=== PATIENT | female | born 1960 | race Caucasian/White ===

== ENCOUNTER 2017-01-24 12:54 | Day surgery (SDC) | payer OTHER ==
[~2017-01-24] VITALS: Ht 152.4 cm; Wt 65.0 kg
--- NOTE | 2017-01-24 08:13 | PCM.HPANE ---
Patient Data Surgeon Admitting Provider: Attending Provider:Amilcar Donovan DPM Primary Care Physician:Brisa Other Provider:Joanne Mccartney Anesthesia Reason for Visit Right Plantar Fibroma Ht/WT & BMI Height (Feet): 5 Height (Inches): 1 Weight (Kilograms): 60.327 Body Mass Index 25.00 Allergies Coded Allergies: No Known Allergies (Verified , 01/24/17) Past Anesthesia History Anesthesia History: Denies:: Anesthesia Reactions, Malignant Hyperthermia Diabetes History Hx Diabetes?: Yes Type of Diabetes: Type II Glycemic Control: Diet Controlled MRSA MRSA: No Medications Reported Medications Cholestyramine (Cholestyramine Packet)4 Gm Packet4 Gm PO DAILY Ref 0 PLEASE VERIFY DOSAGE 01/22/17 Hydrocodone-Acetaminophen 5-325 mg 1 Each Tablet1 Tablet PO Q4H PRN For Pain Ref 0 01/22/17 Cyclobenzaprine 10 Mg [id number] Mg PO TID PRN Spasm 01/22/17 History History of ENT Problems?: No Hx of Heart Problems?: Yes Cardiovascular History: Positive for:: Chest Pain (06/2006 MPS (EF 74%) WNL ) Denies:: Heart Murmur Hx of Respiratory Problem?: No Respiratory History: Denies:: Use of C-PAP Machine Hx Neurologic Problems?: Yes Neurological History: Positive for:: Headaches Hx of GI Problems?: Yes Other GI Pertinent History: S/P APPY Hx of Problems?: Yes Genitourinary History: Positive for:: Urinary Tract Infection (HX OF) Denies:: Kidney Stones Female Hx: Positive for:: Problems with Breasts? (S/P BREAST BX,AXILLARY BX BOTH WERE BENIGN) Denies:: Currently Endometriosis Pelvic Inflammatory Skin History: Denies:: History Skin Disorders? Pressure Ulcers Hx Musculoskeletal Problems?: Yes Musculoskeletal History: Positive for:: Back Injury (C/OF LOWER BACK PAIN) Hx of Psycho/Social Problems?: Yes Psycho Social History: Positive for:: Anxiety Hx Surgeries?: Yes (HYST,APPY,BREAST BX,AXILLARY BX,CTR,EXC AHMADI'S NEUROMA- FOOT) Hx Any Other Health Problems?: Yes Other History: Positive for:: Hospitalization (CHEST PAIN) Denies:: Cancer Endocrine Disease Thyroid Disease History Blood Transfusions: Positive for:: Blood Transfusions Denies:: Blood Transfuse Reaction Hx Diabetes: Yes Hx Alcohol Use: NoHx Substance Use: NoHave You Smoked inLast 12 mo: Yes Approx How Many Cigarettes/day: 1/2-1 PPD Stop/Bang S-Snoring: Do You Snore Loudly: No T-Tired: feel tired, fatigued: No O-Obsered: Observed not breath: No P-Blood Pressure: treated: No B- Body Mass Index > 35 kg/m2: No A- Age over 50: Yes N- Neck Large Circumference: No G- Gender Male: No SAUL Total Score: 1 SAUL Risk Assessment: Low Risk, <3 Yes Risk Assessment Category Category 1A: Patient has history of documented sleep apnea, and HAS NOT received any narcotic, sedative or anesthesia administration during this stay. Category 1B: Patient has history of documented sleep apnea, and HAS received any narcotic , sedative or anesthesia administration during this stay Category 2: Patient has SUSPECTED Obstructive Sleep Apnea, and HAS received any narcotic , sedative or anesthesia administration during this stay. Category 3: Patient has SUSPECTED Obstructive Sleep Apnea and HAS NOT received narcotic, sedative or anesthesia administration during this stay. Category 4: Outpatient in Procedural Areas with known sleep apnea or who screen positive for High Risk via the STOP/BANG questionnaire. Exam Exam General Appearance: Alert, Oriented X3, Cooperative, No Acute Distress HEENT/AIRWAY: MP 1 Lungs: Normal Air Movement Heart: Exam Unremarkable Plan Impression Patient chart reviewed, patient interviewed and anesthestic plan with risks, benefits, and alternatives discussed, and informed consent obtained. ASA Physical Status: ASA2 Mod Systemic Disease Anesthetic Plan: GA Bene/Risks/Altern/Consents: Yes HP Complete Prior to Induction: Yes Donovan Soto MD Jan 24, 2017 08:13
[~2017-01-24 12:54] MED LIST: CYCL10TA9 PO; HYDR-4003 PO; QUE9 PO
[2017-01-24] MEDS ORDERED: Propofol 10,000 mCg/mL 20 mL Inj ONE (12:55)
[2017-01-24] MEDS ORDERED: Ondansetron 2 mg/mL 2 mL Inj ONE (12:55)
[2017-01-24] MEDS ORDERED: fentaNYL-PF 50 mCg/mL 2 mL Inj ONE (12:55)
[2017-01-24 13:16] VITALS: BP 127/76; PULSE 103; RESP 14; O2SAT 97
[2017-01-24] MEDS ORDERED: Lactated Ringer's 1,000 ML IV ONE (13:33)
[2017-01-24] MEDS ORDERED: CeFAZolin Inj 2 gm / 50mL D5W IV ONE (15:36)
[2017-01-24] MEDS ORDERED: Lactated Ringer's 500 ML IV PRN (16:12)
[2017-01-24] MEDS ORDERED: Lactated Ringer's 1,000 ML IV SCH (16:12)
[2017-01-24] MEDS ORDERED: HYDROmorphone 1 mg/mL Inj IVPUSH PRN (16:15)
[2017-01-24] MEDS ORDERED: Dexamethasone 4 mg/mL Inj IVPUSH PRN (16:15)
[2017-01-24] MEDS ORDERED: Albuterol-Ipratropium 3 mL Inhalation Solution NEB PRN (16:15)
[2017-01-24] MEDS ORDERED: Ondansetron 2 mg/mL 2 mL Inj IVPUSH PRN (16:15)
[2017-01-24] MEDS ORDERED: fentaNYL-PF 50 mCg/mL 2 mL Inj IVPUSH PRN (16:15)
[2017-01-24] MEDS ORDERED: EPHEDrine Sulfate 50 mg/mL Inj IVPUSH PRN (16:15)
[2017-01-24] MEDS ORDERED: Phenylephrine 10,000 mCg/mL Inj IVPUSH PRN (16:15)
[2017-01-24] MEDS ORDERED: MetoCLOpramide 5 mg/mL 2 mL Inj IVPUSH PRN (16:15)
[2017-01-24 16:50] VITALS: BP 116/66; PULSE 94; RESP 12; O2SAT 98
--- NOTE | 2017-01-24 16:52 | PCM.SURGPO ---
Immediate Operative Note Date of Surgery: Jan 24, 2017 Pre Operative Diagnosis Plantar fibroma right foot Post Operative Diagnosis Same Procedure Excision fibroma right foot Surgeon and Mechatronics Technician Surgeon: Amilcar Donovan DPM Assistants: None Findings Plantar fibromatosis Complications There were no periprocedural complications identified. Surgical Specimen Removed: Yes Specimen sent to Pathology: Yes Surgical Specimen description: Plantar fibroma Anesthetic Administered: MAC Grafts, Implants: None Output, Estimated Blood Loss: 1 Blood Admin during surgery: No Amilcar Donovan DPM Jan 24, 2017 16:52
--- NOTE | 2017-01-24 16:56 | PCM.ANEP2 ---
Post Anesthesia Evaluation ASA/CMS Post Anesthesia VS in Patient's Normal Range?: Yes Resp Stable; Airway Patent?: Yes CV Function & Hydration Stable: Yes Mental Status Recovered?: Yes Pain control Satisfactory?: Yes N/V Control Satisfactory?: Yes Donovan Soto MD Jan 24, 2017 16:56
--- NOTE | 2017-01-24 16:56 | PCM.ANEP1 ---
Post Anesthesia Phase 1 PACU Phase 1 Assessment Date of Service: Jan 24, 2017 Vital Signs see anesthesia record Vital Signs Date Time Temp Pulse Resp B/P Pulse Ox O2 Delivery O2 Flow Rate FiO2 01/24/17 13:16 35.7 103 14 127/76 97 Room Air Anesthetic Administered: MAC Level of Alertness: Awake, talking JOHNSTON's with Equal Strength: Yes Pain: No Nausea or Vomiting: No Oxygen Delivery: Room Air Lungs: Normal Air Movement Dermatome Level: Full Sensation Donovan Soto MD Jan 24, 2017 16:56
[2017-01-24] MEDS ORDERED: HYDROcodone-APAP 5-325 mg Tablet PO PRN (17:20)
--- NOTE | 2017-01-24 20:09 | OP ---
[address] [address] OPERATIVE REPORT PATIENT: TICO REY : 1960 MR#: [id number] ADMIT: 01/24/2017 JOB ID: [id number] DATE OF SURGERY: 01/24/2017 SURGEON: Amilcar Donovan DPM PREOPERATIVE DIAGNOSIS(ES): Plantar fibromatosis of the right foot. POSTOPERATIVE DIAGNOSIS(ES): Plantar fibromatosis of the right foot. PROCEDURE: Excision plantar fibromatosis right foot. ANESTHESIA: Local plus IV sedation. HEMOSTASIS: Ankle pneumatic tourniquet to 250 mmHg x36 minutes. ESTIMATED BLOOD LOSS: Minimal. INDICATION: This patient has had a painful plantar fibromatosis in the arch of the right foot. After failure of conservative care consisting of alteration of shoes and padding, and consideration of the risks and benefits of surgery, especially the high recurrence rate, the patient desires to have the fibromas removed. PROCEDURE: The patient was brought to the operating room and placed on the operating table in supine position and IV sedation administered. Upon administration of IV sedation, 10 mL of 0.5% Marcaine with epinephrine was infiltrated about the posterior tibial nerve. An additional 10 cc of this mix was infiltrated both medial and lateral to the planned skin incision for primarily hemostasis. The pneumatic tourniquet was applied to the right ankle and the right foot was then prepped and draped in the usual aseptic manner. Anesthesia was tested and found to be partially adequate distally. There seemed to be some sensation. Therefore an additional 10 mL of 0.5% Marcaine with epinephrine was infiltrated in both the dorsal medial and medial aspect of the foot and around the posterior tibial nerve. When anesthesia was reassessed, it was found to be adequate. An Esmarch bandage was applied from the toes to the heel to exsanguinate the foot. The tourniquet was inflated to 250 mmHg and the Esmarch bandage removed. At this time attention was directed to plantar aspect of the right arch where a 10 cm curvilinear incision was made over the palpable fibromas. This skin incision was deepened via sharp and blunt dissection with the superficial vessels being ligated as needed. Vital structures were identified and retracted medially. Upon penetrating the plantar fat, the largest fibromatosis was readily apparent. Blunt dissection was carried out distally and proximally exposing the band of plantar fascia. There was appreciated to be three separate growths in the plantar fascia. This appeared to be primarily the medial part of the central band. The fascia was then transected distally approximately 1 cm distal to the most distal fibroma. Blunt dissection was then carried out, the fascia from the underlying deep and plantar musculature. Care was taken not to damage the underlying musculature. The fascia was transected. The dissection was carried proximally once the most proximal fibroma had been dissected underneath. Approximately 1 cm of the fascia was transected and removed in total. This was then sent for pathologic examination. The arch was palpated. The remainder the fascia was palpated. No additional lumps could be appreciated. The site was then lavaged with sterile saline. The deep tissues were then approximated with 4-0 Vicryl. The skin was then closed with 3-0 nylon. We started with 4-0 nylon in a combination of horizontal mattress and interrupted sutures. Dexamethasone 8 mg was infiltrated for postoperative analgesia. Xeroform dressing, abdominal pad, and dry sterile compressive dressing was applied to the foot. The tourniquet was released at 36 minutes with immediate return of color to all digits. The patient was then taken from the operating room to Day Surgery with vital signs stable and capillary filling time within normal limits to all digits, with no apparent complications from anesthesia.
--- NOTE | 2017-01-27 15:18 | PATH ---
SURGICAL PATHOLOGY Attending Physician:Bib Young CASE STATUS: Signed Out PATIENT NAME: TICO REY PID: [id number] : 1960 DATE COLLECTED:01/24/2017 00:00 SPECIMEN: Soft Tissue, NOS CLINICAL HISTORY: RIGHT PLANTAR FIBROMA 1). RIGHT FOOT FIBROMA FINAL DIAGNOSIS: 1.SOFT TISSUE MASS, RIGHT FOOT: PLANTAR FIBROMATOSIS. NO EVIDENCE OF MALIGNANCY. ICD10 CODE M72.2 GROSS DESCRIPTION: The specimen is received in formalin, labeled with the patient's name, sublabeled as R foot fibroma and consists of an unoriented piece of hopkins-white solid firm rubbery fibrous tissue (5.5 x 2.1 x 0.7 cm). The tissue contains in irregular focally firm area (1.7 x 1.5 x 0.7 cm) with a bright white homogenous cut surface. Ink code: black-resection margin. Section code: (A) tissue, serially sectioned, internet sales representative. 01/25/17 MICRO DESCRIPTION: See diagnosis. ICD-9 CODES: CPT CODES: 46838 Electronically Signed Out Jon Mccoy MD [facility] [address], [place] [address] Technical component performed at [facility], [address] [place] [address] Ave[address], [place], [address]
== END 2017-01-24 23:59 | disposition home or self-care (01) ==
LOC: SAS 12:54
PROVIDERS: ATTEND Podiatrist
DX: M72.2 Plantar fascial fibromatosis (principal); E11.9 Type 2 diabetes mellitus without complications; F17.210 Nicotine dependence, cigarettes, uncomplicated
CPT/HCPCS: 28043; 36415; 87340; 88304; G0432; G0433; G0472; J0690; J2250; J2405; J3010; J7120